=== PATIENT | male | born 2000 | race Caucasian/White ===

== ENCOUNTER → 2022-06-02 | Outpatient (CLI) | payer BC, OTHER ==
[~2022-06-02] MED LIST: ONDANSETRON4 MG SL; VISTARIL25 MG PO
[2022-06-02 15:41] LABS: BASO % 0.8 % (0.0-1.0); EOS % 0.8 % (1.0-4.0); LYMPH # 1.4 10*3/uL (1.3-4.4); LYMPH % 27.8 % (27.0-41.0); MEAN CELL VOLUME 90.6 fl (80.0-94.0); MEAN CORPUSCULAR HGB 31.3 pg (27.0-31.0); MEAN CORPUSCULAR HGB CONC 34.6 g/dl (33.0-37.0); MEAN PLATELET VOLUME 10.3 fl (9.6-12.3); MONO # 0.3 10*3/uL (0.1-1.0); MONO % 6.7 % (3.0-9.0); NEUT # 3.2 10*3/uL (2.3-7.9); NEUT % 63.7 % (47.0-73.0); PLATELET COUNT AUTOMATED 245 10*3/uL (130-400); RED BLOOD COUNT 5.52 10*6/uL (4.50-5.90); WHITE BLOOD COUNT 5.1 10*3/uL (4.8-10.8)
[2022-06-04 18:06] LABS: TRYPTASE 1.6 ug/L (2.2-13.2)
== END | disposition home or self-care (01) ==
LOC: LAB 14:53
PROVIDERS: ATTEND Allergy & Immunology
DX: J30.89 Other allergic rhinitis (principal); J63.4 Siderosis

== ENCOUNTER → 2022-06-19 | Day surgery (SDC) | payer BC, OTHER ==
[~2022-06-19] VITALS: Ht 172.7 cm; Wt 74.8 kg
[~2022-06-19] MED LIST changes: +CLARITIN10 MG PO; +EPIPEN 2-P0.3 MG/0.3 IJ; +PROVENTIL HFA6.7 GM INH
[2022-06-19 06:54] VITALS: BP 121/47
[2022-06-19 07:56] VITALS: BP 93/32
[2022-06-19 08:11] VITALS: BP 107/59
[2022-06-19 08:26] VITALS: BP 111/58
== END | disposition home or self-care (01) ==
LOC: SDC 06-16 11:00
PROVIDERS: ATTEND Surgery
DX: K92.1 Melena (principal); F41.9 Anxiety disorder, unspecified; F17.290 Nicotine dependence, other tobacco product, uncomplicated; Z88.1 Allergy status to other antibiotic agents

== ENCOUNTER 2022-08-02 22:52 | Emergency (ER) | payer OTHER, BC ==
[~2022-08-02] VITALS: Ht 170.1 cm; Wt 70.3 kg
== END 2022-08-02 23:47 | disposition home or self-care (01) ==
LOC: ED 22:52
DX: S80.11XA Contusion of right lower leg, initial encounter (principal); Z88.1 Allergy status to other antibiotic agents; Z88.2 Allergy status to sulfonamides; Z88.8 Allergy status to other drugs, medicaments and biological substances; V89.2XXA Person injured in unspecified motor-vehicle accident, traffic, initial encounter; Y93.89 Activity, other specified; Y92.410 Unspecified street and highway as the place of occurrence of the external cause; Y99.8 Other external cause status

== ENCOUNTER 2022-09-02 08:19 | Emergency (ER) | payer BC, OTHER ==
[~2022-09-02] VITALS: Wt 72.6 kg
== END 2022-09-02 08:44 | disposition home or self-care (01) ==
LOC: ED 08:19
DX: S10.96XA Insect bite of unspecified part of neck, initial encounter (principal); Z88.1 Allergy status to other antibiotic agents; Z88.2 Allergy status to sulfonamides; Z88.8 Allergy status to other drugs, medicaments and biological substances; W57.XXXA Bitten or stung by nonvenomous insect and other nonvenomous arthropods, initial encounter; Y93.89 Activity, other specified; Y92.89 Other specified places as the place of occurrence of the external cause; Y99.8 Other external cause status

== ENCOUNTER 2022-09-28 09:41 | Emergency (ER) | payer BC, OTHER ==
[~2022-09-28] VITALS: Ht 172.7 cm; Wt 77.1 kg
[2022-09-28 10:50] LABS: BASO % 0.6 % (0.0-1.0); EOS % 0.6 % (1.0-4.0); HEMATOCRIT 47.2 % (42.0-52.0); LYMPH # 0.9 10*3/uL (1.3-4.4); LYMPH % 13.3 % (27.0-41.0); MEAN CELL VOLUME 91.1 fl (80.0-94.0); MEAN CORPUSCULAR HGB 31.5 pg (27.0-31.0); MEAN CORPUSCULAR HGB CONC 34.5 g/dl (33.0-37.0); MONO # 0.4 10*3/uL (0.1-1.0); MONO % 6.1 % (3.0-9.0); NEUT # 5.6 10*3/uL (2.3-7.9); NEUT % 79.1 % (47.0-73.0); PLATELET COUNT AUTOMATED 209 10*3/uL (130-400); RED BLOOD COUNT 5.18 10*6/uL (4.50-5.90); WHITE BLOOD COUNT 7.1 10*3/uL (4.8-10.8)
[2022-09-28 11:23] LABS: ALKALINE PHOSPHATASE 65 U/L (46-116); BUN 7 mg/dl (9-23); CHLORIDE 106 mmol/L (98-107); POTASSIUM 3.8 mmol/L (3.4-5.1); SGPT/ALT 11 U/L (10-49); TOTAL PROTEIN 6.8 gm/dL (6.0-8.0)
== END 2022-09-28 11:27 | disposition home or self-care (01) ==
LOC: ED 09:41
PROVIDERS: Emergency Medicine
DX: T63.444A Toxic effect of venom of bees, undetermined, initial encounter (principal); Z88.1 Allergy status to other antibiotic agents; Z88.8 Allergy status to other drugs, medicaments and biological substances; Z88.2 Allergy status to sulfonamides; Y92.89 Other specified places as the place of occurrence of the external cause

== ENCOUNTER 2022-10-15 09:31 | Emergency (ER) | payer BC, OTHER ==
[2022-10-15 10:09] LABS: BILIRUBIN Negative (Negative); BLOOD Negative (Negative); CLARITY Clear (Clear); COLOR Yellow (Yellow); GLUCOSE Negative (Negative); KETONE Trace (Negative); LEUKO ESTERASE Negative (Negative); NITRITE Negative (Negative); PH 6.5 (4.5-8.0)
[2022-10-15 10:23] LABS: BASO % 0.6 % (0.0-1.0); EOS % 0.5 % (1.0-4.0); HEMATOCRIT 44.8 % (42.0-52.0); LYMPH % 16.6 % (27.0-41.0); MEAN CELL VOLUME 90.1 fl (80.0-94.0); MEAN CORPUSCULAR HGB 31.4 pg (27.0-31.0); MEAN CORPUSCULAR HGB CONC 34.8 g/dl (33.0-37.0); MONO # 0.4 10*3/uL (0.1-1.0); MONO % 6.9 % (3.0-9.0); NEUT # 4.7 10*3/uL (2.3-7.9); NEUT % 75.1 % (47.0-73.0); PLATELET COUNT AUTOMATED 198 10*3/uL (130-400); RED BLOOD COUNT 4.97 10*6/uL (4.50-5.90); WHITE BLOOD COUNT 6.3 10*3/uL (4.8-10.8)
[2022-10-15 10:51] LABS: ALKALINE PHOSPHATASE 67 U/L (46-116); BUN 5 mg/dl (9-23); CHLORIDE 107 mmol/L (98-107); POTASSIUM 3.9 mmol/L (3.4-5.1); SGPT/ALT 11 U/L (10-49); TOTAL PROTEIN 6.4 gm/dL (6.0-8.0)
[2022-10-15 10:56] LABS: BACTERIA 1+; MUCOUS 3+; RBC 0-2 rbc/hpf (0-2)
== END 2022-10-15 11:33 | disposition home or self-care (01) ==
LOC: ED 09:31
PROVIDERS: Emergency Medicine
DX: R10.32 Left lower quadrant pain (principal); R10.31 Right lower quadrant pain; R10.84 Generalized abdominal pain; Z88.1 Allergy status to other antibiotic agents; Z88.8 Allergy status to other drugs, medicaments and biological substances; Z88.2 Allergy status to sulfonamides

== ENCOUNTER 2022-10-22 10:10 | Emergency (ER) | payer OTHER ==
[2022-10-22 11:07] LABS: BASO % 0.4 % (0.0-1.0); EOS % 0.4 % (1.0-4.0); LYMPH # 0.8 10*3/uL (1.3-4.4); LYMPH % 15.1 % (27.0-41.0); MEAN CELL VOLUME 88.2 fl (80.0-94.0); MEAN CORPUSCULAR HGB 31.5 pg (27.0-31.0); MEAN CORPUSCULAR HGB CONC 35.7 g/dl (33.0-37.0); MEAN PLATELET VOLUME 10.2 fl (9.6-12.3); MONO # 0.4 10*3/uL (0.1-1.0); MONO % 7.5 % (3.0-9.0); NEUT # 3.9 10*3/uL (2.3-7.9); NEUT % 76.2 % (47.0-73.0); PLATELET COUNT AUTOMATED 227 10*3/uL (130-400); RED BLOOD COUNT 5.33 10*6/uL (4.50-5.90); WHITE BLOOD COUNT 5.1 10*3/uL (4.8-10.8)
[2022-10-22 11:29] LABS: ALKALINE PHOSPHATASE 67 U/L (46-116); BUN 8 mg/dl (9-23); CHLORIDE 106 mmol/L (98-107); POTASSIUM 3.9 mmol/L (3.4-5.1); TOTAL PROTEIN 6.8 gm/dL (6.0-8.0)
[2022-10-22 11:30] LABS: SGPT/ALT < 7 U/L (10-49)
[2022-10-22] MEDS ORDERED: [UNRECOGNIZED DRUG - OTHER] IM (11:47)
== END 2022-10-22 11:51 | disposition home or self-care (01) ==
LOC: ED 10:10
PROVIDERS: Emergency Medicine
DX: T78.2XXA Anaphylactic shock, unspecified, initial encounter (principal); T63.441A Toxic effect of venom of bees, accidental (unintentional), initial encounter; Z88.1 Allergy status to other antibiotic agents; Z88.2 Allergy status to sulfonamides; Z88.8 Allergy status to other drugs, medicaments and biological substances; Y92.89 Other specified places as the place of occurrence of the external cause

== ENCOUNTER 2022-11-18 10:52 | Emergency (ER) | payer OTHER ==
[~2022-11-18] VITALS: Ht 172.7 cm; Wt 77.1 kg
[~2022-11-18 10:52] MED LIST changes: +[UNRECOGNIZED DRUG - OTHER] IM
== END 2022-11-18 12:59 | disposition left against medical advice (07) ==
LOC: ED 10:52
DX: T63.441A Toxic effect of venom of bees, accidental (unintentional), initial encounter (principal); Z88.1 Allergy status to other antibiotic agents; Z88.2 Allergy status to sulfonamides; Z88.8 Allergy status to other drugs, medicaments and biological substances; Y92.89 Other specified places as the place of occurrence of the external cause

== ENCOUNTER 2022-11-22 13:07 | Emergency (ER) | payer OTHER ==
[~2022-11-22] VITALS: Ht 172.7 cm; Wt 77.1 kg
[2022-11-22 14:40] LABS: BASO % 0.5 % (0.0-1.0); EOS % 0.1 % (1.0-4.0); LYMPH % 12.9 % (27.0-41.0); MEAN CELL VOLUME 87.3 fl (80.0-94.0); MEAN CORPUSCULAR HGB 31.7 pg (27.0-31.0); MEAN CORPUSCULAR HGB CONC 36.4 g/dl (33.0-37.0); MEAN PLATELET VOLUME 10.4 fl (9.6-12.3); MONO # 0.4 10*3/uL (0.1-1.0); MONO % 5.8 % (3.0-9.0); NEUT % 80.6 % (47.0-73.0); PLATELET COUNT AUTOMATED 199 10*3/uL (130-400); RED BLOOD COUNT 5.04 10*6/uL (4.50-5.90); RED CELL DISTRI WIDTH 12.5 % (0-14.5); WHITE BLOOD COUNT 7.5 10*3/uL (4.8-10.8)
[2022-11-22 14:41] LABS: BILIRUBIN Negative (Negative); BLOOD Negative (Negative); CLARITY Clear (Clear); COLOR Yellow (Yellow); GLUCOSE Negative (Negative); KETONE Negative (Negative); LEUKO ESTERASE Negative (Negative); NITRITE Negative (Negative); SPECIFIC GRAVITY >= 1.030 (1.001-1.030)
[2022-11-22 14:48] LABS: URINE AMPHETAMINES Negative (1000ng/ml); URINE BARBITURATES Negative (200ng/ml); URINE BENZODIAZEPINES Negative (200ng/ml); URINE CANNABINOIDS (THC) Negative (50ng/ml); URINE COCAINE Negative (300ng/ml); URINE METHADONE Negative (300ng/ml); URINE OPIATES Negative (300ng/ml); URINE PHENCYCLIDINE Negative (25ng/ml)
[2022-11-22 14:52] LABS: ACT PARTIAL THROMBO TIME 25.4 SECONDS (20.0-32.1); INTERNATIONAL NORM RATIO 1.2 (2.0-3.5)
[2022-11-22 14:53] LABS: EPITHELIAL CELLS 0-2; WBC 0-2 wbc/hpf (0-5)
[2022-11-22 15:04] LABS: ALKALINE PHOSPHATASE 66 U/L (46-116); BUN 6 mg/dl (9-23); CHLORIDE 102 mmol/L (98-107); ETHYL ALCOHOL < 3.0 mg/dl (<3); LIPASE 31 U/L (12-53); POTASSIUM 3.6 mmol/L (3.4-5.1); SGPT/ALT 8 U/L (10-49); TOTAL PROTEIN 6.5 gm/dL (6.0-8.0)
[2022-11-22] MEDS ORDERED: REGLAN10 M1 PO (15:06)
== END 2022-11-22 15:21 | disposition home or self-care (01) ==
LOC: ED 13:07
PROVIDERS: Internal Medicine
DX: R11.2 Nausea with vomiting, unspecified (principal); B34.9 Viral infection, unspecified; Z88.1 Allergy status to other antibiotic agents; Z88.2 Allergy status to sulfonamides; Z88.8 Allergy status to other drugs, medicaments and biological substances; Z20.822 Contact with and (suspected) exposure to COVID-19; Z79.899 Other long term (current) drug therapy

== ENCOUNTER → 2023-03-19 | Outpatient (CLI) | payer OTHER ==
[~2023-03-19] MED LIST changes: +REGLAN10 M1 PO
== END | disposition home or self-care (01) ==
LOC: LAB 15:32
PROVIDERS: ATTEND Allergy & Immunology
DX: T63.441A Toxic effect of venom of bees, accidental (unintentional), initial encounter (principal); T63.451A Toxic effect of venom of hornets, accidental (unintentional), initial encounter; T78.09XA Anaphylactic reaction due to other food products, initial encounter; T63.461A Toxic effect of venom of wasps, accidental (unintentional), initial encounter; Y92.89 Other specified places as the place of occurrence of the external cause

== ENCOUNTER 2023-03-23 20:09 | Emergency (ER) | payer OTHER ==
[~2023-03-23] VITALS: Ht 172.7 cm; Wt 63.5 kg
== END 2023-03-24 00:35 | disposition home or self-care (01) ==
LOC: ED 20:09
DX: S80.212A Abrasion, left knee, initial encounter (principal); M54.2 Cervicalgia; M54.50 Low back pain, unspecified; Z88.1 Allergy status to other antibiotic agents; Z88.2 Allergy status to sulfonamides; Z88.8 Allergy status to other drugs, medicaments and biological substances; V89.2XXA Person injured in unspecified motor-vehicle accident, traffic, initial encounter; Y93.89 Activity, other specified; Y92.89 Other specified places as the place of occurrence of the external cause; Y99.8 Other external cause status

== ENCOUNTER → 2023-07-11 | Outpatient (CLI) | payer OTHER | LOC: LAB 10:15 | PROVIDERS: ATTEND Internal Medicine | DX: T63.441A Toxic effect of venom of bees, accidental (unintentional), initial encounter (principal); L30.9 Dermatitis, unspecified; R68.89 Other general symptoms and signs; Z87.892 Personal history of anaphylaxis; L28.2 Other prurigo; J30.89 Other allergic rhinitis; H10.45 Other chronic allergic conjunctivitis; X58.XXXA Exposure to other specified factors, initial encounter ==

== ENCOUNTER 2023-10-02 10:40 | Emergency (ER) | payer MEDICAID ==
[~2023-10-02] VITALS: Ht 172.7 cm; Wt 79.4 kg
[2023-10-02] MEDS ORDERED: EPIPEN 2-P0.3 MG/0.3 IJ (11:04)
[2023-10-02] MEDS ORDERED: CLOBETASOL PROPIONATE 30 GM TUBE T ONE (11:05)
== END 2023-10-02 11:05 | disposition home or self-care (01) ==
LOC: ED 10:40
DX: S60.362A Insect bite (nonvenomous) of left thumb, initial encounter (principal); Z88.1 Allergy status to other antibiotic agents; Z88.2 Allergy status to sulfonamides; Z88.8 Allergy status to other drugs, medicaments and biological substances; W57.XXXA Bitten or stung by nonvenomous insect and other nonvenomous arthropods, initial encounter; Y93.89 Activity, other specified; Y92.89 Other specified places as the place of occurrence of the external cause; Y99.0 Civilian activity done for income or pay

== ENCOUNTER 2024-08-02 09:59 | Emergency (ER) | payer SELFPAY ==
[~2024-08-02] VITALS: Ht 172.7 cm; Wt 77.1 kg
[2024-08-02 10:53] LABS: BASO % 0.6 % (0.0-1.0); EOS % 0.8 % (1.0-4.0); HEMATOCRIT 47.3 % (42.0-52.0); MEAN CELL VOLUME 90.3 fl (80.0-94.0); MEAN CORPUSCULAR HGB 31.5 pg (27.0-31.0); MEAN CORPUSCULAR HGB CONC 34.9 g/dl (33.0-37.0); MEAN PLATELET VOLUME 10.4 fl (9.6-12.3); MONO # 0.4 10*3/uL (0.1-1.0); MONO % 7.1 % (3.0-9.0); NEUT # 3.5 10*3/uL (2.3-7.9); NEUT % 67.8 % (47.0-73.0); PLATELET COUNT AUTOMATED 244 10*3/uL (130-400); RED BLOOD COUNT 5.24 10*6/uL (4.50-5.90); RED CELL DISTRI WIDTH 13.3 % (0-14.5); WHITE BLOOD COUNT 5.2 10*3/uL (4.8-10.8)
[2024-08-02 11:13] LABS: BUN 11 mg/dl (9-23); CHLORIDE 104 mmol/L (98-107); POTASSIUM 3.8 mmol/L (3.4-5.1)
[2024-08-02 11:15] LABS: ETHYL ALCOHOL < 3.0 mg/dl (<3)
[2024-08-02 11:16] LABS: BILIRUBIN Negative (Negative); BLOOD Negative (Negative); CLARITY Clear (Clear); COLOR Yellow (Yellow); GLUCOSE Negative (Negative); KETONE Trace (Negative); LEUKO ESTERASE Negative (Negative); NITRITE Negative (Negative); PH 6.5 (4.5-8.0); SPECIFIC GRAVITY >= 1.030 (1.001-1.030)
[2024-08-02 11:19] LABS: URINE AMPHETAMINES Negative (1000ng/ml); URINE BARBITURATES Negative (200ng/ml); URINE BENZODIAZEPINES Negative (200ng/ml); URINE CANNABINOIDS (THC) Negative (50ng/ml); URINE COCAINE Negative (300ng/ml); URINE METHADONE Negative (300ng/ml); URINE OPIATES Negative (300ng/ml); URINE PHENCYCLIDINE Negative (25ng/ml)
[2024-08-02 11:33] LABS: BACTERIA TRACE; EPITHELIAL CELLS 0-2; WBC 0-2 wbc/hpf (0-5)
== END 2024-08-02 12:03 | disposition home or self-care (01) ==
LOC: ED 09:59
PROVIDERS: Internal Medicine
DX: E16.2 Hypoglycemia, unspecified (principal); R25.1 Tremor, unspecified; R42 Dizziness and giddiness; R11.0 Nausea; Z88.1 Allergy status to other antibiotic agents; Z88.2 Allergy status to sulfonamides; Z88.8 Allergy status to other drugs, medicaments and biological substances; Z79.899 Other long term (current) drug therapy

== ENCOUNTER 2024-09-19 11:22 | Emergency (ER) | payer SELFPAY ==
[~2024-09-19] VITALS: Ht 172.7 cm; Wt 79.4 kg
[2024-09-19] MEDS ORDERED: Ondansetron Hydrochloride 4 MG/2 ML VIAL IV ONE (11:40)
[2024-09-19] MEDS ORDERED: HYDROmorphONE Hydrochloride 0.5 MG/0.5 ML SYRINGE IV ONE (11:40)
[2024-09-19] MEDS ORDERED: SODIUM CHLORIDE 0.9% 1,000 ML IV ONE (11:40)
[2024-09-19 11:59] LABS: BASO % 0.4 % (0.0-1.0); EOS % 0.5 % (1.0-4.0); HEMATOCRIT 47.9 % (42.0-52.0); MEAN CELL VOLUME 89.9 fl (80.0-94.0); MEAN CORPUSCULAR HGB 32.1 pg (27.0-31.0); MEAN CORPUSCULAR HGB CONC 35.7 g/dl (33.0-37.0); MEAN PLATELET VOLUME 10.1 fl (9.6-12.3); MONO # 0.5 10*3/uL (0.1-1.0); MONO % 5.9 % (3.0-9.0); NEUT # 6.3 10*3/uL (2.3-7.9); NEUT % 80.7 % (47.0-73.0); PLATELET COUNT AUTOMATED 231 10*3/uL (130-400); RED BLOOD COUNT 5.33 10*6/uL (4.50-5.90); RED CELL DISTRI WIDTH 12.7 % (0-14.5); WHITE BLOOD COUNT 7.8 10*3/uL (4.8-10.8)
[2024-09-19 12:22] LABS: BILIRUBIN Negative (Negative); BLOOD Negative (Negative); CLARITY Clear (Clear); COLOR Yellow (Yellow); GLUCOSE Negative (Negative); KETONE Trace (Negative); LEUKO ESTERASE Negative (Negative); NITRITE Negative (Negative); SPECIFIC GRAVITY 1.025 (1.001-1.030)
[2024-09-19 12:22] LABS: ALKALINE PHOSPHATASE 74 U/L (46-116); BUN 12 mg/dl (9-23); CHLORIDE 102 mmol/L (98-107); LIPASE 36 U/L (12-53); POTASSIUM 3.9 mmol/L (3.4-5.1); SGPT/ALT 14 U/L (5-49); TOTAL PROTEIN 7.5 gm/dL (6.0-8.0)
[2024-09-19 12:52] LABS: WBC 0-2 wbc/hpf (0-5)
[2024-09-19] MEDS ORDERED: Ondansetron4 MG PO (13:34)
== END 2024-09-19 13:40 | disposition home or self-care (01) ==
LOC: ED 11:22
PROVIDERS: Nurse Practitioner Family
DX: A08.4 Viral intestinal infection, unspecified (principal); R10.31 Right lower quadrant pain; R11.2 Nausea with vomiting, unspecified; R19.7 Diarrhea, unspecified; F41.9 Anxiety disorder, unspecified; Z88.1 Allergy status to other antibiotic agents; Z88.2 Allergy status to sulfonamides; Z88.8 Allergy status to other drugs, medicaments and biological substances; Z79.899 Other long term (current) drug therapy